=== PATIENT | male | born 1940 | race Caucasian/White ===

== ENCOUNTER 2024-09-19 15:34 | Outpatient (CLI) | payer OTHER, SELFPAY ==
--- NOTE | ~2024-09-19 | XR_ITS ---
CHEST RADIOGRAPH, PA AND LATERAL CLINICAL HISTORY: R05.9 - Cough, unspecified . COMPARISON: 11/14/2014 TECHNIQUE: PA and lateral views of the chest. FINDINGS Loop recorder projects to the left of midline. The remainder of the cardiomediastinal silhouette is otherwise unremarkable. The lungs are clear. Visualized osseous structures and soft tissues are unremarkable. IMPRESSION: No focal infiltrate or effusion. Reviewed, dictated and finalized at location A. 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
== END 2024-09-19 15:35 | disposition home or self-care (01) ==
LOC: MICIMG 15:35
PROVIDERS: PCP Family Medicine; Visit Provider Physician Assistant Medical
DX: R05.9 Cough, unspecified (principal)
CPT/HCPCS: 71046

== ENCOUNTER 2025-06-14 19:38 | Observation (INO) | payer MEDICARE, SELFPAY ==
--- NOTE | ~2025-06-14 | CT_ITS ---
EXAMINATION: CT diagnostic chest wo con DATE: 06/15/2025 14:01 INDICATION: possible hemothorax TECHNIQUE: Computed tomography (CT) of the chest was performed with 100 mL Omnipaque-350 intravenous contrast. Automated exposure control and iterative reconstruction technique were employed. The dose-l ength product was 128.03 mGy-cm. COMPARISON: X-ray chest and ribs 06/14/2025. FINDINGS: CHEST: Exam limited by beam hardening from arm down positioning. Thoracic aorta: Mild arch calcification. The ascending aorta is dilated to 4.2 cm. The descending aor ta is dilated to 3.8 cm. Lung parenchyma and airways: Bibasilar atelectasis. Patent airways. Scattered sub-6 mm pulmonary nodu les. Calcified granulomas. Thoracic inlet, axillae and chest wall: No thyroid or soft tissue mass. No axillary lymphadenopathy. Mediastinum: No mass or lymphadenopathy. Heart and pericardium: Cardiomegaly. Atrial occlusion device. Coronary artery calcifications: Heavy. Pleura: Trace left pleural fluid. Upper abdomen: Surgically absent gallbladder. Fatty pancreatic atrophy. Right renal cysts. Thoracic bones: Minimally displaced left seventh anterolateral rib fracture.. Severe osteopenia. IMPRESSION: Minimally displaced left seventh anterolateral rib fracture. Ribs not fully included in the field-of- view. Trace left pleural fluid. Multiple sub-6 mm pulmonary nodules which require no additional evaluation, unless the patient is at high risk, in which case consider a low-dose noncontrast CT of the chest in one year. Thoracic aortic ectasia. Reviewed, dictated and finalized at location K. IMPRESSION: Minimally displaced left seventh anterolateral rib fracture. Ribs not fully inc luded in the [id number]-ovot. Trace left pleural fluid. Multiple sub-6 mm pulmonary nodules which require no additional evaluation, unl ess the patient is at high risk, in which case consider a low-dose noncontrast CT of the chest in one year. Thoracic aortic ectasia.
--- NOTE | ~2025-06-14 | XR_ITS ---
CHEST RADIOGRAPH, PA AND LATERAL CLINICAL HISTORY: Fall; L rib pain . COMPARISON: 09/19/2024 TECHNIQUE: PA and lateral views of the chest. FINDINGS Closure device projecting over the left atrial appendage. Loop recorder projects to the left of midline. The remainder of the cardiomediastinal silhouette is enlarged, but otherwise unremarkable. Blunting of the left costophrenic sulcus is identified suggesting a small left-sided pleural effusion . Acute minimally displaced fracture of the lateralmost margin of the left sixth rib. No additional rib fractures are appreciated for which dedicated left rib series is suggested. The lungs are otherwise clear. IMPRESSION: Acute minimally displaced fracture of the lateralmost margin of the left sixth rib for which dedicate d left rib series is suggested. Small left-sided pleural effusion without focal infiltrate. Reviewed, dictated and finalized at location A. IMPRESSION: Acute minimally displaced fracture of the lateralmost margin of the left sixth rib for which dedicated left rib series is suggested. Small left-sided pleural effusion without focal infiltrate.
--- NOTE | ~2025-06-14 | CT_ITS ---
History: Fall PROCEDURE: CT head without contrast. COMPARISON: None TECHNIQUE: Axial imaging of the head performed from the skull base to the vertex without IV contrast. Sagittal a nd coronal reformations obtained. DLP: 681 mGy-cm FINDINGS: The ventricles are enlarged. The dilatation of the ventricles is proportional to the degree of sulcal prominence, not uncommon in the senescent brain. Decreased attenuation is identified within the periventricular white matter, likely secondary to micr ovascular ischemic disease, in a patient of this age. There is no mass, mass effect or midline shift. There is no abnormal extra-axial fluid collection or intracranial hemorrhage. Visualized paranasal sinuses are clear. The mastoid air cells are well aerated. No acute displaced fractures within the overlying cranium. Impression: No acute intracranial hemorrhage or suspicious mass effect. Reviewed, dictated and finalized at location A. Impression: No acute intracranial hemorrhage or suspicious mass effect.
--- NOTE | ~2025-06-14 | XR_ITS ---
Clinical Indication: Hemothorax AP and lateral views of the chest: Comparison: 06/14/2025 Findings: The lungs are clear, without evidence of focal consolidation or pleural effusion. Cardiome diastinal silhouette is stable, with loop recorder. Stable minimally displaced fracture at the left s eventh rib.. Impression: Clear lungs. Stable left seventh rib fracture. Reviewed, dictated and finalized at location . Impression: Clear lungs. Stable left seventh rib fracture.
--- NOTE | ~2025-06-14 | XR_ITS ---
HISTORY: 6th rib fracture COMPARISON: Plain film evaluation of the chest performed on the same day TECHNIQUE: 3 views of the left ribs were performed FINDINGS: Redemonstration of an acute minimally displaced left lateral sixth rib fracture. Left-sided pleural effusion, likely blood. No discrete left-sided pneumothorax is appreciated on plain film evaluation Remainder of examination is unchanged. IMPRESSION: Redemonstration of an acute minimally displaced lateral left sixth rib fracture with adj acent pleural effusion, likely blood. No discrete pneumothorax identified on plain film evaluation. Reviewed, dictated and finalized at location A. IMPRESSION: Redemonstration of an acute minimally displaced lateral left sixth rib fracture with adjacent pleural effusion, likely blood. No discrete pneumothorax identified on plain film evaluation.
[2025-06-14 19:37] VITALS: BP 168/100; PULSE 89; RESP 20; TEMP 36.3; O2SAT 97
[2025-06-14 19:50] VITALS: BP 168/100; PULSE 89; RESP 20; TEMP 36.3; O2SAT 98
--- OUTSIDE RECORDS SUMMARY | 2025-06-14 20:22 | XMS_ITS ---
Author Organization [facility] [address] Address [address] [place] [address] Care Team Providers Care Music Sound Light Technician Name Role Phone Paz Valles MD Unavailable [phone] Jamie Yoo MD Primary Care Provider Jack Perez MD Unavailable [phone] Active Problems Problem Noted Date Diagnosed Date Low serum vitamin B12 09/30/2022 Assessment & Plan (10/01/2022 3:45 PM RESORT MANAGER): Reportedly OK with recent labs from his PCP. 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 Vitamin D insufficiency 09/18/2019 Assessment & Plan (10/01/2022 3:44 PM RESORT MANAGER): Continue chronic supplement and review recent labs from his PCP Assessment & Plan (01/27/2022 3:41 PM CDT): Continue chronic supplement and recheck level Assessment & Plan (03/11/2021 11:21 AM CDT): Not currently on supplement, but had normal level in August 2020 Assessment & Plan (09/02/2020 1:17 PM RESORT MANAGER): On supplement, we will recheck level Assessment & Plan (09/19/2019 2:12 PM RESORT MANAGER): Continue supplement, recheck level Status post placement of implantable loop record er 04/23/2019 Overview (04/23/2019): [employer] LINQ ILR implanted on 04/23/19 [facility]ib management[facility] 07/13/2018 Assessment & Plan (07/13/2018 5:47 PM CDT): The patient has recurrent atrial flutter with rapid rates. Symptomatically, he is doing well and is unaware of his atrial arrhythmia. I prescribed the patient metoprolol an effort to reduce his ventricular rate. I do not know how long the patient has been in atrial flutter, or if the patient is paroxysmal. I recommended that he wear an event monitor for 7 days to determine if he is returning to sinus rhythm spontaneously. If he is persistently in atrial flutter, repeat ablation or cardiovert may be considered. I also recommended that the patient have an echocardiogram performed in order to ensure the structural and functional normality of his heart. I initiated the patient on Eliquis for thromboprophylaxis. S/P ablation of atrial fibrillation 07/13/2018 Anticoagulation management encounter 07/12/2017 Assessment & Plan (03/28/2022 1:47 PM CDT): His chads Vasc score is 3. The patient is presently anticoagulated with apixaban. He was intolerant of rivaroxaban in the past (he believes that it contributed to his movement disorder). The patient has progressive Parkinson's disease, and this presents difficulty to long-term anticoagulation, in that the postural instability attendant to this pathology constitutes a significant fall risk. I asked the patient to consider Watchman placement for left atrial appendage occlusion, as a nursing home means of nonpharmacologic thromboprophylaxis. He will consider this option. Assessment & Plan (07/12/2017 8:23 AM CDT): The patient has a [id number] score of 2 (annualized risk of stroke 2.2 %). The patient prefers to remain off anticoagulation. If he experiences recurrent atrial arrhythmia, we will reinitiate anticoagulation. The patient will follow-up with me in 12 months for an office visit and twelve- lead ECG. Squamous cell carcinoma in situ (SCCIS) of skin 01/11/2017 Parkinson's disease 05/18/2016 Assessment & Plan (01/27/2022 3:41 PM CDT): He is getting ongoing therapy. However, he is able to compensate and test his glucoses regularly Assessment & Plan (09/30/2020 6:53 PM RESORT MANAGER): ASSESSMENT - 80 y.o. man with Parkinson's disease for 6 years (onset in Jul 2014), that began in 2013 at age 74 with right hand rest tremor, later accompanied by micrographia. He experienced had syncope, nightmares, and hallucinations on 300 mg levodopa and metoprolol, and who chose to stay off levodopa and medicines in general due to mildness of symptoms and for fear of repeating the experience of side effects. - Motor symptoms: his slowness has subjectively progressed, and he now has intermittent leg cramps on most nights that may be caused by PD. The examination showed some progression of exam findings. The UPDRS score today was 43 in Aug 2020 on no meds; 34 in March 2019 on no meds; 34 in March 2018 on no meds; 19 in Apr 2016. He agreed to try carbidopa/levodopa again with the goal of relieving the night leg cramps and feeling less tired at the end of an active day. - Depression: hs mood has been good and he is only mildly irritable according to his . No need for treatment. - Falls: no falls. PLAN (phrased as addressed to the patient): - As we discussed, Parkinson's may be the cause of your leg cramps. Medication for PD may stop these. - Start carbidopa/levodopa 25/100 tabs: week 1, 1/2 tab in the morning; week 2, 1/2 tab morning and lunch; week 3 and after, 1/2 tab 3x/day. - Look out for the following possible side effects, and call my office if any of these side effects appear: nausea, dizziness when standing, drowsiness, vivid dreams, nightmares, confusion, hallucinations (seeing things), paranoia, fainting (which can cause falls and head injury). - Contact my office in 4 weeks to report whether you are having nightmares and I will decide whether to increase the dose further, still slowly by half a tablet a day every week. This encounter's total [id number] time was 25 minutes. I spent more than 50% of this time in counseling and/or coordination of care as documented in the note. The patient visit started at 1649 and ended at 1721. Greater than 50% of the visit was spent on counseling and coordinating care. Patient was counseled on possible benefits of carbidopa/levodopa. Assessment & Plan (04/11/2019 2:50 PM CDT): - 78 y.o. man with tremor-dominant PD for about 5 years (onset in Jul 2014), who had syncope on 300 mg levodopa and metoprolol, and who has chosen to stay off levodopa and medicines in general due to mildness of symptoms and for fear of repeated the experience of side effects. - Motor symptoms: he feels there has been little change in his symptoms in the past year, and the exam is quite similar to last year's, with motor UPDRS score again 34 today in March 2019 on no meds; 34 in March 2018 on no meds; 19 in Apr 2016. His symptoms remain not bothersome to him, and he has no balance problems. He remains strongly reluctant to start carbidopa/levodopa. We again agreed that he would not start medications now but he could call my office at any time and I would prescribe something (perhaps amantadine, selegiline, or extended-release carbidopa/levodopa). - Activity: he continues to attend [employer] 3x/week and finds it helpful as well as enjoyable. - Hypophonia: he elected not to try speech therapy for hypophonia. - Depression: hs mood has been good and he is only occasionally irritable according to his . No need for treatment. - Falls: no falls. PLAN (phrased as addressed to the patient): - Continue regular physical activity as you are doing. - If your tremor starts bothering you, or if you develop balance problems or if you fall, call my office and I will consider starting a medication for Parkinson's. Atrial fibrillation and flutter 11/27/2014 Overview (02/04/2017): A Fib / Flutter Assessment & Plan (10/01/2022 3:45 PM RESORT MANAGER): Followed by his rooms director. Need to minimize risk of hypoglycemia Assessment & Plan (07/12/2017 7:58 AM CDT): The patient is over 2 years status post ablation for atypical atrial flutter. He is also status post pulmonary vein isolation. He continues to do well and is maintaining sinus rhythm without antiarrhythmic drugs. We will continue to monitor and follow closely, and manage new / recurrent arrhythmia expectantly. Deafness, conductive 08/05/2011 Overview (02/09/2018): Description: minimal - age-related Osteoarthritis of lumbar spine 08/05/2011 Overview (02/09/2018): Description: asymptomatic Atrial fibrillation 08/05/2011 Overview (02/09/2018): Description: Hx ablation Assessment & Plan (07/01/2022 7:38 AM CDT): Minimally symptomatic persistent atrial fibrillation, overall low burden. Anticoagulation is problematic. The patient has an elevated [id number] score (3). Based on this, systemic anticoagulation is recommended for thromboprophylaxis. The patient also has a contraindication for long-term anticoagulation: Fall risk, related to postural instability (a hallmark of Parkinson's Disease). Because of this combination of factors, we discussed the steps involved and rationale for percutaneous left atrial appendage occlusion (placement of a [place] left atrial appendage occlusion device). We discussed the risks, including hematoma/vascular injury, myocardial perforation, stroke or thromboembolic event, device embolism, and . We discussed the benefits, as well as the post- Watchman medication / follow-up regimen, to include 45 days of therapeutic anticoagulation, repeat GRISELDA, followed by an additional 5 months of dual anti-platelet therapy. I provided the patient with educational material. If the patient would like to proceed, I will refer her to our Watchman coordinator for additional screening and preparations. From: October, Lizzette LS, Stas H, Debi LY, Guillermo JE, Christopher GONZALEZ Jr, Mckenzie PT, Torie AVENDANO, ME, Ozzie KL, Mateo PA, Henrik KT, Marimar JEZ, Martha CM, Cherrie CW. 2019 AHA/ACC/HRS focused update of the 2014 AHA/ACC/HRS guideline for the management of patients with atrial fibrillation: a report of the [place] [employer]/[place] [employer] Association Task Force on Clinical Practice Guidelines and the Heart Rhythm Society. Heart Rhythm 2019;16:e66-e93. Class IIb: Percutaneous GENA occlusion may be considered in patients with AF at increased risk of stroke who have contraindications to long-term anticoagulation. Assessment & Plan (03/28/2022 1:46 PM CDT): Persistent atrial fibrillation. Presently, the patient is in atrial fibrillation, but is minimally symptomatic (in contrast to previously, when he was quite symptomatic). Because of the paucity of symptoms, a strategy of rate control and anticoagulation is reasonable. Assessment & Plan (04/24/2019 6:16 PM CDT): The patient has persistent atrial fibrillation, for which he is status post ablation. He also has atypical atrial flutter which is paroxysmal, and appears to be very infrequent. In fact, he have not seen it in some time. For now, the patient will continue on metoprolol. He is very eager to discontinue apixaban if possible. I recommended that he undergo placement of an implanted loop recorder to guide further anticoagulant therapy. We will make the appropriate arrangements. The patient will follow-up with me in 6 months for an office visit and twelve- lead ECG. Assessment & Plan (10/25/2018 5:59 PM RESORT MANAGER): The patient has a post ablation atypical atrial flutter. The this appears to be paroxysmal, and he is in sinus rhythm at present. The I recommended that he continue on metoprolol, and we will continue to follow him for recurrence. I also recommended that he remain anticoagulated for thromboprophylaxis. If he experiences recurrence of flutter (especially if it is symptomatic), ablation can be considered. The patient will follow-up with me in 6 months for an office visit and twelve- lead ECG. Type 2 diabetes mellitus Assessment & Plan (10/01/2022 3:45 PM RESORT MANAGER): Glucoses currently within a good margin of safety. We can reasonably continue current management Assessment & Plan (01/27/2022 3:42 PM CDT): Glucoses within a good margin of safety. However, he needs follow-up labs Assessment & Plan (03/11/2021 11:22 AM CDT): Excellent control with diet, lifestyle and metformin therapy. Assessment & Plan (09/02/2020 1:17 PM RESORT MANAGER): Clinically stable, need to recheck labs Assessment & Plan (09/19/2019 2:12 PM RESORT MANAGER): Glucose within a reasonable margin of safety, needs follow-up labs. Current Treatment and Therapy Plans No current plan information found. Past Treatment and Therapy Plans No past plan information found. Lifetime Dose Tracking * Chemical Lifetime Dose Automatic Entry Manual Entr y Air kerma at the reference point (Ka,r) 4 mGy 0 mGy 4 mGy
--- OUTSIDE RECORDS SUMMARY | 2025-06-14 20:22 | XMS_ITS | Clinical Summary ---
Author Organization [facility] Address [address] [place] [place] [address] Care Team Providers Care Dye Range Feeder Name Role Phone Paz Valles MD Unavailable [phone] Jamie Yoo MD Primary Care Provider Jack Perez MD Unavailable [phone] Allergies Active Allergy Reactions Criticality Noted Date Comments Penicillins Rash,Hives High Reaction: RASH, Reaction: Hives, Medications finasteride (PROSCAR) 5 mg tablet Take 1 tablet (5 mg total) by mouth daily Active multivitamin tabletIndicatio ns:Vitamin Deficiency Prevention Take 1 tablet by mouth daily Active tamsulosin (FLOMAX) 0.4 mg extended release capsule Take 1 capsule (0.4 mg total) by mouth daily Active metoprolol XL (TOPROL-XL) 25 mg 24 hr tablet TAKE ONE TABLET BY MOUTH ONCE DAILY 90 tablet 3 07/03/2019 Active cholecalciferol (VITAMIN D-3) 2000 unit capsule 1 daily Active blood glucose diagnostic (Contour Next Test Strips) strip Active Microlet Lancet misc USE TO CHECK BLOOD SUGAR EVERY MORNING 09/27/2022 Active metFORMIN XR (GLUCOPHAGE XR) 500 mg 24 hr tablet TAKE 2 TABLETS BY MOUTH TWICE A DAY 360 tablet 3 06/24/2023 Active aspirin 81 mg enteric coated tablet TAKE 1 TABLET BY MOUTH EVERY DAY 90 tablet 1 03/28/2024 Active Active Problems Problem Noted Date Diagnosed Date Low serum vitamin B12 09/30/2022 Assessment & Plan (10/01/2022 3:45 PM COMMUNITY SERVICE PATROL OFFICER): Reportedly OK with recent labs from his PCP. 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 Vitamin D insufficiency 09/18/2019 Assessment & Plan (10/01/2022 3:44 PM COMMUNITY SERVICE PATROL OFFICER): Continue chronic supplement and review recent labs from his PCP Assessment & Plan (01/27/2022 3:41 PM CDT): Continue chronic supplement and recheck level Assessment & Plan (03/11/2021 11:21 AM CDT): Not currently on supplement, but had normal level in August 2020 Assessment & Plan (09/02/2020 1:17 PM COMMUNITY SERVICE PATROL OFFICER): On supplement, we will recheck level Assessment & Plan (09/19/2019 2:12 PM COMMUNITY SERVICE PATROL OFFICER): Continue supplement, recheck level Status post placement of implantable loop record er 04/23/2019 Overview (04/23/2019): Medtronic LINQ ILR implanted on 04/23/19 for Afib management. 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 He will consider this option. Assessment & Plan (07/12/2017 8:23 AM CDT): The patient has a [id number]-[id number] score of 2 (annualized risk of stroke [...] regularly Assessment & Plan (09/30/2020 6:53 PM COMMUNITY SERVICE PATROL OFFICER): ASSESSMENT - 80 y.o. man with Parkinson's [...] a day every week. This encounter's total txpj-bb-slxy time was 25 minutes. I spent more than 50% of this time in counseling and/or coordination of care as documented in the note. The patient visit started at 1649 and ended at 172. Greater than 50% of the visit was [...] carbidopa/levodopa). 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 Need to minimize risk of hypoglycemia Assessment [...] is problematic. The patient has an elevated [id number]-DLFm score (3). Based on this, systemic anticoagulation [...] LY, Guillermo JE, Christopher GONZALEZ Jr, Mckenzie MONTAGUE, Torie AVENDANO, ME, Ozzie KL, Mateo PA, Henrik KT, Marimar JEZ, Martha CM, Cherrie CW. 2019 AHA/ACC/HRS focused update of the 2014 AHA/ACC/HRS guideline for the management of patients with atrial fibrillation: a report of the [place] [employer]/[place] [employer] Task Force on Clinical Practice [...] ECG. Assessment & Plan (10/25/2018 5:59 PM COMMUNITY SERVICE PATROL OFFICER): The patient has a post ablation atypical [...] mellitus Assessment & Plan (10/01/2022 3:45 PM COMMUNITY SERVICE PATROL OFFICER): Glucoses currently within a good margin of safety. We can reasonably continue current management Assessment & Plan (01/27/2022 3:42 PM CDT): Glucoses within a good margin of safety. However, he needs follow-up labs Assessment & Plan (03/11/2021 11:22 AM CDT): Excellent control with diet, lifestyle and metformin therapy. Assessment & Plan (09/02/2020 1:17 PM COMMUNITY SERVICE PATROL OFFICER): Clinically stable, need to recheck labs Assessment & Plan (09/19/2019 2:12 PM COMMUNITY SERVICE PATROL OFFICER): Glucose within a reasonable margin of safety, needs follow-up labs. Immunizations Immunization Administration Dates Next Due Influenza, Quad, Adjuvantate d, Intramuscular 09/30/2021,07/30/2020 Influenza, Trivalent, Preser vative Free, Intramuscular 2016,2016,10/31/2014,10/31,10/31/2009 Pneumococcal Polysaccharide PPV23 10/31/2009 Surgical History Surgery Date Site/Laterality Comments CHOLECYSTECTOMY Cholecystectomy SQUAMOUS CELL CARCINOMA EXCISION right bahai ABLATION OF AFIB FLUTTER N/A a-fib ablation x 2 Medical History Medical History Date Comments Hx Other Medical PBH; Comments: [facility] 11/27/2014 - Cancer (HCC) Arrhythmia Diastolic dysfunction Atrial fibrillation (HCC) Squamous cell skin cancer Family History Medical History Relation Name Comments Heart attack Father Myocardial Infa rction; Cause of : Myocardial Infarction/Myocardial infarction; Cause of : Myocardial infarction Other Father CVA; Cause of D eath: CVA Relation Name Status Comments Father Social History Tobacco Use Types Packs/Day Years Used Date Smoking Tobacco: Never Smokeless Tobacco: Never Tobacco Cessation:Counseling Given: Not Answered Alcohol Use Standard Drinks/Week Comments No 0 (1 standard drink = 0.6 oz pur e alcohol) Sex and Gender Information Value Date Recorded Sex Assigned at Not on file Legal Sex Male 8:58 PM COMMUNITY SERVICE PATROL OFFICER Gender Identity Male 08/28/2020 9:26 AM CDT Sexual Orientation Straight 08/28/2020 9: 26 AM CDT Obstetrics History Last Filed Vital Signs Vital Sign Reading Time Taken Comments Blood Pressure 110/68 02/27/2025 1:02 PM CDT Pulse 97 02/27/2025 1:02 PM CDT Temperature 36.3 C (97.4 F) 09/30/2022 3:49 PM COMMUNITY SERVICE PATROL OFFICER Respiratory Rate 18 08/24/2022 1:04 PM CDT Oxygen Saturation 98% 02/15/2024 1:17 PM CDT Inhaled Oxygen Concentration - - Weight 54.9 kg (121 lb) 02/27/2025 1:02 PM CDT Height 162.6 cm (5' 4) 02/27/2025 1:02 PM CDT Body Mass Index 20.77 02/27/2025 1:02 PM CDT Plan of Treatment Health Maintenance Due Date Last Done Comments Depression Screening 1942 Dilated Eye Exam 1942 Foot Exam 1942 DTaP/Tdap/Td Vaccine (1 - Tdap) 1953 Hepatitis B Screening 1960 Zoster Vaccine (1 of 2) 1992 Well Visit 65+ 2007 Pneumococcal vaccine 65+ (2 of 2 - PCV) 10/31/2010 10/31/2009 Albumin Creatinine Ratio, Urine 01/29/2023 01/29/2022, 09/13/2020, 09/18/2019 Lipid Panel 01/29/2023 01/29/2022, 08/31, 09/18/2019 Hemoglobin A1C 03/31/2023 09/30/2022, 12/30, 03/09/2021, Additional history exists Fall Risk Assessment 07/06/2023 07/06/2022 eGFR 08/04/2023 08/04/2022, 12/2021, 01/29/2022, Additional history exists Covid-19 Vaccine (2023-2 5 season) 2024 08/26/2022, 08/15/2021, 01/15/2021, Additional history exists Influenza Vaccine (#1) 2025 , 09/30/2021, 07/30/2020, Additional history exists Medical Devices Implanted Type Area Gifted Teacher Device Identifier Shelf Expiration Date Model / Serial / Lot [employer] Vascade Mvp 6-12fr Venous Closure [id number] - [id number] - [id number] Implanted:Qty: 1 on 07/06/2022 by Jack Perez MD at [facility] Collagen [employer] 04/21/2024 [id number] / [id number] / [id number] [employer] Scientific Silvia Watchman Flx Procedure Device Wmflxperproc - [id number] - [id number] Implanted:Qty: 1 on 07/06/2022 by Jack Perez MD at [facility] Left Atrial Appendage Occluder [employer] Silvia 03/09/2025 [id number] / [id number] / [employer] Silvia Occluder Cardiovascular 27mm Dlv Sys Watchman Flx Strl [id number] - [id number] - [id number] Implanted:Qty: 1 on 07/06/2022 by Jack Perez MD at [facility] Left Atrial Appendage Occluder [employer] Silvia 03/09/2025 [id number] / [id number] / Medtronic Cardiac Rhythm Mgmt Linqsys Reveal Linq Mycarelink Insertable Loop Recorder Automatic - [id number] - [id number] Implanted:Qty: 1 on 04/23/2019 by Jack Perez MD at [facility] Medtronic Inc [id number] 12/28/2019 LIBORIO QSYS / [id number] / Procedures Procedure Name Priority Date/Time Associated Diagnosis Comments POCT HEMOGLOBIN A1C Routine 09/30/2022 3 :58 PM COMMUNITY SERVICE PATROL OFFICER Type 2 diabetes mellitus without complication, without long-term current use of insulin (HCC) BASIC METABOLIC PANEL Routine 08/04/2022 9:03 AM CDT Atypical atrial flutter (HCC) LIPID PANEL Routine 01/29/2022 3:57 PM CDT Type 2 diabetes mellitus without complication, without long-term current use of insulin (HCC) ALBUMIN CREATININE RATIO, URINE Routine 01/29/2022 3:57 PM CDT Type 2 diabetes mellitus without complication, without long-term current use of insulin (HCC) from Last 3 Months or Most Recently Relevant to Health Maintenance Results * (ABNORMAL) POCT hemoglobin A1c (09/30/2022 3:58 PM COMMUNITY SERVICE PATROL OFFICER) Hemoglobin A1C, POC 6.3 Blood 09/30/2022 3:58 PM COMMUNITY SERVICE PATROL OFFICER us Paz Valles MD POINT OF CARE TEST ORDERABL ES Final Result * (ABNORMAL) Basic metabolic panel (08/04/2022 9:03 AM CDT) Glucose 145(H) 65 - 99 mg/dL [facility] Comment: Fasting reference interval For someone without known diabetes, a glucose value >125 mg/dL indicates that they may have diabetes and this should be confirmed with a follow-up test. BUN 22 7 - 25 mg/dL [facility] Creatinine 0.77 0.70 - 1.22 mg/dL [facility] eGFR 91 > OR = 60 mL/min/1. 73m2 [facility] Comment: The eGFR is based on the CKD-EPI 2020 equation. To calculate the new eGFR from a previous Creatinine or Cystatin C result, go to https://www.kidney.org/professionals/ kdoqi/gfr%5Fcalculator BUN/creat ratio NOT APPLICABLE 6 - 22 (calc) [facility] Sodium 143 135 - 146 mmol/L [facility] Potassium, pl 4.2 3.5 - 5.3 mmol/L [facility] Chloride 103 98 - 110 mmol/L [facility] CO2 29 20 - 32 mmol/L [facility] Calcium 9.6 8.6 - 10.3 mg/dL [facility] Blood 08/04/2022 9:03 AM CDT 08/04/2022 9:04 AM CDT Narrative [facility] - 08/05/2022 1:57 AM CDT FASTING:YES AN UPDATE OR CORRECTION HAS BEEN MADE TO NAME FASTING: YES us Jack Perez MD LAB BLOOD ORDERABLES Fi nal Result [facility] [address] [place] [address] * (ABNORMAL) Albumin Creatinine Ratio, Urine (01/29/2022 3:57 PM CDT) Albumin Ur 53.8 mg/L [facility] Comment: Interpretive Data No reference range established. Current interpretive data was last revised 2019. Creatinine Ur 130.1 mg/dL [facility] Comment: Interpretive Data No reference range established. Current interpretive data was last revised 2019. Albumin Creatinine Ratio, Ur 41(H) 1 - 29 mg/g [facility] Urine 01/29/2022 3:57 PM CDT 01/29/2022 4:29 PM CDT Narrative [facility] - 01/29/2022 5:10 PM CDT Cc Dariel Toney MD Paz Valles MD LAB URINE ORDERABLES Final Result [facility] [address] [facility] [place] [address] * Lipid panel (01/29/2022 3:57 PM CDT) Cholesterol 160 30 - 199 mg/dL [facility] Comment: Interpretive Data Ages < or = 19 years Acceptable: <170 mg/dL Borderline high: 170-199 mg/dL High: >or= 200 mg/dL Ages > or = 20 years Desirable: <200 mg/dL Borderline high: 200-239 mg/dL High: >or= 240 mg/dL Literature References: 1. Expert Panel on Integrated Guidelines for Cardiovascular Health and Risk Reduction in Children and Adolescents. Pediatrics 2011;128:S213 2. NCEP Expert Panel. Circulation 2004;110:227 Current Interpretive Data was last revised on 2018. Triglycerides 54 <=149 mg/dL [facility] Comment: Interpretive Data Ages < or = 9 years Acceptable: <75 mg/dL Borderline high: 75-99 mg/dL High: >or= 100 mg/dL Ages 10 to 20 years Acceptable: <90 mg/dL Borderline high: 90-129 mg/dL High: >or= 130 mg/dL Ages > or = 20 years Desirable: <150 mg/dL Borderline high: 150-199 mg/dL High: 200-499 mg/dL Very high: >or= 499 mg/dL Literature References: 1. Expert Panel on Integrated Guidelines for Cardiovascular Health and Risk Reduction in Children and Adolescents. Pediatrics 2011;128:S213 2. NCEP Expert Panel. Circulation 2004;110:227 Current Interpretive Data was last revised on 2018. HDL 74 >=40 mg/dL [facility] Comment: Interpretive Data Ages < or = 19 years Acceptable: >45 mg/dL Borderline low: 40-45 mg/dL Low: <40 mg/dL Ages > or = 20 years Desirable: >or= 60 mg/dL Low: <40 mg/dL Literature References: 1. Expert Panel on Integrated Guidelines for Cardiovascular Health and Risk Reduction in Children and Adolescents. Pediatrics 2011;128:S213 2. NCEP Expert Panel. Circulation 2004;110:227 Current Interpretive Data was last revised on 2018. LDL, calculated 75 <=129 mg/dL [facility] Comment: Interpretive Data Ages < or = 19 years Acceptable: <110 mg/dL Borderline high: 110-129 mg/dL High: >or= 130 mg/dL Ages > or = 20 years Optimal: <100 mg/dL Near optimal: 100-129 mg/dL Borderline high: 130-159 mg/dL High: >160 mg/dL Literature References: 1. Expert Panel on Integrated Guidelines for Cardiovascular Health and Risk Reduction in Children and Adolescents. Pediatrics 2011;128:S213 2. NCEP Expert Panel. Circulation 2004;110:227 Current Interpretive Data was last revised on 2018. Non-HDL Cholesterol 86 mg/dL [facility] Comment: Interpretive Data Ages < or = 19 years Acceptable: <120 mg/dL Borderline high: 120-144 mg/dL High: >145 mg/dL Ages > or = 20 years When triglycerides are >200 mg/dL, Non-HDL cholesterol is a secondary target of therapy with treatment goals that are 30 mg/dL greater than the LDL cholesterol target. Literature References: 1. Expert Panel on Integrated Guidelines for Cardiovascular Health and Risk Reduction in Children and Adolescents. Pediatrics 2011;128:S213 2. NCEP Expert Panel. Circulation 2004;110:227 Current Interpretive Data was last revised on 2018. Chol/HDL ratio 2 [facility] Blood 01/29/2022 3:57 PM CDT 01/29/2022 4:29 PM CDT [facility] - 01/29/2022 5:23 PM CDT Cc Dariel Toney MD us Paz Valles MD LAB BLOOD ORDERABLES Final Result [facility] [address] [facility] [place] [address] from Last 3 Months or Most Recently Relevant to Health Maintenance Insurance [facility] [employer] MEDICARE GOLD [employer] Care Teams Dye Range Feeder Relationship Specialty Start Date End Date Jamie Yoo MD [address] [place] [address] PCP - General Family Medicine 03/25/22 Paz Valles MD Referring Physician Endocrinology Diabetes & Metabolism 09/02/20 Jack Perez MD [address] [facility] [address], [place] [address] Consulting Physician Cardiology 09/30/22
--- OUTSIDE RECORDS SUMMARY | 2025-06-14 20:22 | XMS_ITS | Clinical Summary ---
Author Organization [facility] [employer] Address [address] [place] [address] Care Team Providers Care Engraver Ornamental Design Name Role Phone Unavailable Primary Care Provider Unavailabl e Source Comments [facility] [employer],non-owned Affiliates and Associated Physician Practices is amultiple site organization consisting of ambulatory clinics and hospital sitesin [place], [place], [place] and [place]. This disclosure is being madepursuant to the Care Everywhere program and may not contain all information available regarding this patient. Last updated 18.[facility] Social History Tobacco Use Types Packs/Day Years Used Date Smoking Tobacco: Never Assessed Sex and Gender Information Value Date Recorded Sex Assigned at Not on file Legal Sex Male 4:48 PM CDT Gender Identity Not on file Sexual Orientation Not on file Plan of Treatment Health Maintenance Due Date Last Done Comments MEDICARE AWV 12 MONTHS 1942 DTAP/TDAP/TD VACCINES (1 - Tdap) 1961 PNEUMOCOCCAL VACCINE 50+ (1 of 1 - PCV) 1992 ZOSTER VACCINE (1 of 2) 1992 Respiratory Syncytial Virus (RSV) Vaccine Pt: or over 60 yrs (1 - 1-dose 75+ series) 2017 COVID-19 VACCINE ( - 2023-2 5 season) 2024 DEPRESSION SCREENING 10/31/2024 INFLUENZA VACCINE (#1) 2025 HEPATITIS B VACCINE Aged Out No longe r eligible based on patient's age to complete this topic HIB VACCINE Aged Out No longer eligi ble based on patient's age to complete this topic HPV VACCINE Aged Out No longer eligi ble based on patient's age to complete this topic MENINGOCOCCAL (Group B) VACC INE SHARED DECISION-MAKING Aged Out No longer eligibl e based on patient's age to complete this topic MENINGOCOCCAL GROUPS A/C/Y/W VACCINE Aged Out No longer eligible b ased on patient's age to complete this topic Insurance [facility] MEDICARE
--- OUTSIDE RECORDS SUMMARY | 2025-06-14 20:22 | XMS_ITS | Encounter Summary ---
Author Organization [facility] Address [address] [place] [address] Care Team Providers Care Partition Assembler Name Role Phone Unavailable Primary Care Provider Unavailabl e Encounter Details Date Type Department Care Team (Late st Contact Info) Description 06/09/2023 Lab Requisition [facility] - DermPath Lab [address] [place] [id number] Korey Najera MD [facility] DERMATOLOGY [address] [place] [phone] Neoplasm of uncertain behavior of skin Social History Tobacco Use Types Packs/Day Years Used Date Smoking Tobacco: Never Assessed Sex and Gender Information Value Date Recorded Sex Assigned at Not on file Legal Sex Male 4:48 PM CDT Gender Identity Not on file Sexual Orientation Not on file documented as of this encounter Plan of Treatment Not on file documented as of this encounter Procedures Procedure Name Priority Date/Time Associated Diagnosis Comments DERMATOPATHOLOGY Routine 06/09/2023 12:0 0 AM CDT Neoplasm of uncertain behavior of skin documented in this encounter Results * DERMATOPATHOLOGY (06/09/2023 12:00 AM CDT) Case Report Dermatopathology Report Case: [id number] Authorizing Provider: Korey Najera MD Collected: 06/09/2023 12:00 AM Ordering Location: [facility] DermPath Lab Received: 06/10/2023 02:58 PM Pathologist: Lexie Clark MD Specimen: Skin, left jawline 12:15 PM CDT DERMATOPATHOLOGY LABORATORY Final Diagnosis Specimen A. 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 The specimen consists of a shave biopsy measuring 8x7x2 mm. Jar 0. 12:15 PM CDT DERMATOPATHOLOGY LABORATORY Microscopic Description Specimen A. SKIN, left jawline: The epidermis shows parakeratosis, full thickness disorderly maturation of keratinocytes, mitoses at different levels, and dyskeratotic cells. The lesion extends to the base of the biopsy. COMMENT: An invasive squamous cell carcinoma cannot be ruled out. 12:15 PM CDT DERMATOPATHOLOGY LABORATORY Disclaimer An external and internal positive and negative controls are appropriate for the histochemical, immunohistochemical and immunofluorescence stain(s) in this case (if any), except where stated explicitly. The performance characteristics of the stain(s) cited in this report were developed and its performance characteristic determined by the Dermatopathology Laboratory at [facility], directed by Dr. Christopher Holman. These tests need not be, and therefore are not, approved by the [place] Food and Drug Administration. The tests are used for clinical purposes. Billing Codes Specimen Charges Stain Charges 19094 1 3 12:15 PM CDT DERMATOPATHOLOGY LABORATORY Embedded Images 3 12:15 PM CDT DERMATOPATHOLOGY LABORATORY Pathology/Cytolog y TISSUE SPECIMEN FROM SKIN / Unknown 06/09/2023 06/10/2023 2:58 PM CDT us Korey Najera MD LAB - PATHOLOGY/CYTOLOGY JOSE LOVE Final Result DERMATOPATHOLOGY LABORATORY [facility] - Department of Dermatology [address] [place] [address], [facility] [phone] documented in this encounter Visit Diagnoses Diagnosis Neoplasm of uncertain behavior of skin documented in this encounter
--- OUTSIDE RECORDS SUMMARY | 2025-06-14 20:22 | XMS_ITS | Clinical Summary ---
Author Organization [facility] Address [facility] [place] [address] Care Team Providers Care Urban Redevelopment Specialist Name Role Phone Unavailable Primary Care Provider Unavailabl e Social History Tobacco Use Types Packs/Day Years Used Date Smoking Tobacco: Never Assessed Sex and Gender Information Value Date Recorded Sex Assigned at Not on file Legal Sex Male 4:31 PM CDT Gender Identity Not on file Sexual Orientation Not on file Plan of Treatment Health Maintenance Due Date Last Done Comments DTaP, Tdap and Td Vaccines ( 1 - Tdap) 1961 Pneumococcal Vaccine: 50+ Ye ars (1 of 1 - PCV) 1992 Zoster Vaccines (1 of 2) 1992 RSV Immunization or 60+ Years (1 - 1-dose 75+ series) 2017 COVID-19 Vaccine (2023-2 5 season) 2024 Meningococcal B Vaccine Aged Out No l onger eligible based on patient's age to complete this topic Meningococcal Vaccine Aged Out No gerald kalyn eligible based on patient's age to complete this topic RSV Immunizations Under 20 Months Aged Out No longer eligible based on patient's age to complete this topic
[2025-06-14 21:00] VITALS: BP 148/89; PULSE 94; RESP 20; O2SAT 97
--- NOTE | 2025-06-14 21:19 | ED_ITS ---
HPI - Fall General Chief Complaint: Fall Stated Complaint: Fall/rib pain L Time Seen by Provider: 06/14/25 19:46 History of Present Illness HPI Narrative: 84-year-old male presenting to the emergency department with left-sided rib pain after falling in the shower. Did not strike his head or lose consciousness. Patient states he takes blood thinners. Has a Watchman device for atrial fibrillation. Also has a history of severe parkinsonian disease with tremors at baseline. Endorses some pain in his left rib cage but no difficulty in breathing, chest discomfort, nausea, vomiting, headache, vision change, peripheral neuropathy or weakness. He was otherwise in his normal state of health. He states he got tangled up in the shower and fell towards the left side and struck his ribs against the toilet bowl. Able to get up right away and did not lose consciousness. Related Data Home Medications ?Medication ?Instructions ?Recorded ?Confirmed ?Last Taken ?Type aspirin 325 mg tablet 325 mg PO DAILY 02/10/22 01/07/25 Unknown History Allergies Allergy/AdvReac Type Severity Reaction Status Date / Time Penicillins Allergy Unknown Skin Verified 06/14/25 19:51 Reaction Review of Systems 2 Review of Systems: As reviewed above in HPI [facility] Past Medical History Medical History (Updated 06/15/25 @ 00:41 by Edy Rivera MD) Traumatic hemothorax, initial encounter Closed rib fracture Fall Cobalamin deficiency Surgical History Surgical History History of cardiac radiofrequency ablation History of loop recorder History of cholecystectomy Family History Family History Sibling Family history of multiple sclerosis Family history of diabetes mellitus in first degree relative Patient's sister is Father Cerebrovascular accident Patient's father is Diabetes mellitus Hypertension Heart disease Mother Family history of Alzheimer's disease Patient's mother is Social History Social History Social History: Smoking status: Never smoker Second hand tobacco smoke exposure: No Alcohol intake: never Substance use: never Substance use type: does not use Do You Feel Safe in your Home?: Yes Lack of Transportation: No Lack of Food: Never True Current Housing: I Have Housing Concerned About Future Housing: No Difficulty Paying Gas/Electric Bills: No Difficulty Paying for Meds: No Currently Unemployed: YES Education: Don't Know Difficulty w/ Childcare or Family Care: No Living arrangements: with family Occupation/Education: retired Gender identity (if verbalized by the patient): Male Sexual Orientation (if Verbalized by the Patient): Straight or Heterosexual Exam 2 Narrative: GENERAL: [Well-appearing, well-nourished, and in no acute distress.] HEAD: [Normocephalic, atraumatic.] EYES: [PERRLA and EOMI.] ENT: Nares clear, no rhinorrhea or epistaxis. Mucous membranes moist. NECK: Supple. CHEST: Tenderness to palpation over left side ribcage, no step-offs, deformities or crepitus. Clear breath sounds throughout, no tachypnea. HEART: [Regular rate and rhythm]. No murmur heard. [Normal peripheral pulses.] ABDOMEN: [Soft, nondistended], [nontender], [No rigidity or guarding] EXTREMITIES: Normal range of motion. [No edema.] SKIN: Warm, dry, no rash. NEURO: [No focal deficits]. Alert and oriented [x3.] PSYCH: [Normal mood and affect.] Course Vital Signs Vital signs: Vital Signs Temperature 36.3 C L 06/14/25 19:37 Pulse Rate 89 06/14/25 19:37 Respiratory Rate 20 06/14/25 19:37 Blood Pressure 168/100 H 06/14/25 19:37 Pulse Oximetry 97 06/14/25 19:37 Oxygen Delivery Room Air 06/14/25 19:37 Temperature 36.3 C L 06/14/25 19:50 Pulse Rate 71 06/15/25 00:05 Respiratory Rate 16 06/15/25 00:05 Blood Pressure 145/90 H 06/15/25 00:05 Pulse Oximetry 97 06/15/25 00:05 Oxygen Delivery Room Air 06/14/25 19:37 MDM - Fall MDM Narrative Medical decision making narrative: 84-year-old male presenting to the emergency department with left-sided rib pain after falling in the shower. Did not strike his head or lose consciousness. Patient states he takes blood thinners. Has a Watchman device for atrial fibrillation. Also has a history of severe parkinsonian disease with tremors at baseline. Endorses some pain in his left rib cage but no difficulty in breathing, chest discomfort, nausea, vomiting, headache, vision change, peripheral neuropathy or weakness. He was otherwise in his normal state of health. He states he got tangled up in the shower and fell towards the left side and struck his ribs against the toilet bowl. Able to get up right away and did not lose consciousness. Tenderness to palpation over left side ribcage, no step-offs, deformities or crepitus. Clear breath sounds throughout, no tachypnea. Patient is not any acute distress and overall well-appearing. He does have some baseline tremor from his parkinsonian disease. Concern for rib fracture, hemothorax, pneumothorax. Low suspicion intracranial pathology but given his age risk factors with the fall a CT of the head was obtained. X-ray shows a left-sided displaced rib fracture with small left-sided pleural effusion. Repeat rib series obtained to evaluate for additional ribs or worsening/stability of the fluid collection which could be a potential small hemothorax based on injury pattern. Patient is saturating 98% on room air without any tachypnea. No pneumothorax appreciated. Repeat x-rays with left-sided rib series show redemonstration of the minimally displaced fracture isolated to rib 6. With an underlying likely hemothorax although very small. No indication for chest tube/drainage. No pneumothorax. He is saturating well on room air without any hypoxemia or needing oxygen. No tachypnea or tachycardia. Pain is controlled without any significant inventions. Given patient's small hemothorax he will require admission to a hospital for monitoring and repeat images to make sure that this does not expand given his historical features and use of aspirin. He is not any other anticoagulants per his . He has a Watchman device for his AFib. I did discuss this with our hospitalist KENAN Andino and relayed the concerns as well as the need for an observation admission to make sure he has no expansion of his hemothorax or developing any respiratory distress her vital instability. No indication to transfer him to a trauma center given the lack of pain, vital concerns or worsening symptoms/findings on repeat imaging but he requires admission for observation with likely dc in AM if stable. Patient was accepted to the IMU at this time. Family and patient comfortable with the plan and patient is DNR at this time. Medical Records Attestation: I reviewed the patient's medical records. Lab Data Attestation: I reviewed the patient's lab results. 06/14/25 22:43 06/14/25 22:43 Labs: Lab Results 06/14/25 Range/Units 22:43 WBC 6.7 (4.5-10.0) K/mm3 RBC 3.68 L (4.6-6.20) M/mm3 Hgb 11.4 L (14.0-18.0) g/dL Hct 34.3 L (42.0-52.0) % MCV 93.2 (80-100) fl MCH 31.0 (26-34) pg MCHC 33.2 (32-36) g/dl RDW 13.9 (11.5-14.5) % Plt Count 222 (150-375) k/mm3 MPV 9.1 (7.4-10.4) fl Immature Gran % (Auto) 0.5 (0-0.5) % Neut % (Auto) 64.4 (45.5-73.1) % Lymph % (Auto) 25.3 (18.3-44.2) % [place] % (Auto) 7.7 (2.6-8.5) % Eos % (Auto) 1.5 (0-4.4) % Baso % (Auto) 0.6 (0.2-1.2) % Lymph # (Auto) 1.68 (0.9-3.2) K/mm3 [place] # (Auto) 0.5 (0.1-0.6) K/mm3 Eos # (Auto) 0.1 (0-0.3) K/mm3 Baso # (Auto) 0.0 (0.0-0.1) K/mm3 Abs Immat Gran (auto) 0.03 (0.00-0.031) K/mm3 Absolute Neuts (auto) 4.3 (1.3-6.7) K/mm3 Absolute Nucleated RBC 0.000 (0.0-0.012) K/mm3 Nucleated RBC % 0.0 (0.0-0.2) % PT 12.8 (11.1-14.7) Seconds INR 0.9 APTT 28.0 (22.3-36.8) Seconds Sodium 139 (137-145) mmol/L Potassium 4.2 (3.4-5.0) mmol/L Chloride 104 (98-107) mmol/L Carbon Dioxide 27 (22-30) mmol/L Anion Gap 8 (4-12) mmol/L BUN 21 H (9-20) mg/dL Creatinine 0.79 (0.7-1.3) mg/dL Estim Creat Clear Calc 48 ml/min Estimated GFR > 60 (59 - ) Glucose 232 H (65-110) mg/dL Calcium 9.6 (8.4-10.2) mg/dL Blood Type O Positive Antibody Screen Negative Imaging Data Attestation: I personally reviewed and interpreted this imaging study as follows: My impression: Impressions Chest X-Ray 06/14/25 21:13 IMPRESSION: Acute minimally displaced fracture of the lateralmost margin of the left sixth rib for which dedicated left rib series is suggested. Small left-sided pleural effusion without focal infiltrate. Ribs X-Ray 06/14/25 21:55 IMPRESSION: Redemonstration of an acute minimally displaced lateral left sixth rib fracture with adjacent pleural effusion, likely blood. No discrete pneumothorax identified on plain film evaluation. Head CT 06/14/25 21:58 Impression: No acute intracranial hemorrhage or suspicious mass effect. Discharge Plan Discharge Clinical Impression: Fracture of left sixth rib, Hemothorax, left, Parkinson disease Patient Disposition: Still a Patient Condition: Stable
[2025-06-14] MEDS: oxyCODONE HCL (*CRX) 2.5 MG TAB IR PO (21:29)
[2025-06-14] MEDS: LIDOCAINE 5% PATCH 1 PATCH TRANSDERM (21:29)
[2025-06-14 22:50] LABS: Hematocrit 34.3 % (42.0-52.0); Hemoglobin 11.4 g/dL (14.0-18.0); Immature Granulocyte Percent A 0.5 % (0-0.5); Lymphocytes Absolute Auto 1.68 K/mm3 (0.9-3.2); Mean Corpuscular HGB Conc 33.2 g/dl (32-36); Mean Corpuscular Hemoglobin 31.0 pg (26-34); Mean Corpuscular Volume 93.2 fl (80-100); Nucleated Red Blood Cells Absolute Auto 0.000 K/mm3 (0.0-0.012); Nucleated Red Blood Cells Perc 0.0 % (0.0-0.2); Platelet Count Result 222 k/mm3 (150-375); Red Blood Count 3.68 M/mm3 (4.6-6.20); White Blood Count 6.7 K/mm3 (4.5-10.0)
[2025-06-14 23:00] LABS: INR 0.9; Prothrombin Time 12.8 Seconds (11.1-14.7)
[2025-06-14 23:01] LABS: Anion Gap 8 mmol/L (4-12); Blood Urea Nitrogen 21 mg/dL (9-20); Calcium 9.6 mg/dL (8.4-10.2); Carbon Dioxide 27 mmol/L (22-30); Chloride 104 mmol/L (98-107); Estimated CRCL calculation 48 ml/min; Estimated Glomerular Filt Rate > 60; Glucose 232 mg/dL (65-110); Partial Thromboplastin Time 28.0 Seconds (22.3-36.8); Potassium 4.2 mmol/L (3.4-5.0); Sodium 139 mmol/L (137-145)
[2025-06-15] VITALS (16 sets, daily range): BP systolic 145–161; BP diastolic 65–95; PULSE 65–134; RESP 16–20; TEMP 36.1–36.9; O2SAT 96–100; BMI 20.8
--- NOTE | 2025-06-15 | P.HP_ITS ---
H&P: HPI History of Present Illness Date/Time: 06/15/25 00:00 Chief Complaint: Fall, Rib pain Narrative: This is a very pleasant 84 year old male pt with PMH of Parkinson's disease, atrial fibrillation status post Watchman procedure and cobalamin deficiency who presented to the emergency room this evening after a fall in the shower. Patient states that he was attempting to Wipe down the shower when he became entangled in the towel and fell outside of the shower landing with his left ribs against the toilet. He denies any head injury or LOC and his only blood thinner is a full aspirin daily. He has no other complaints other than the left rib pain. Workup was performed in ER that shows unremarkable metabolic panel, normal vital signs, specifically oxygen saturations of 98% on room air, hemoglobin and hematocrit of 11.4 and 34.3. Platelets 222 and no leukocytosis. Coags are normal. Chest x-ray shows an acute minimally displaced fracture of the lateral most margin of the left 6th rib. There is a reported adjacent pleural effusion that is likely blood. No pneumothorax. CT head is negative. Patient is being admitted observation to ensure early intervention if there is any sign of decompensation with his respiratory status. He will have serial enzymes and repeat chest x-ray in a.m.. Review of Systems Review of Systems: All systems reviewed & are unremarkable except as noted in HPI and below PMFSH Past Medical History Medical History (Updated 06/15/25 @ 00:18 by GENEVA Lopez) Traumatic hemothorax, initial encounter Closed rib fracture Fall Cobalamin deficiency Surgical History Surgical History History of cardiac radiofrequency ablation History of loop recorder History of cholecystectomy Family History Family History Sibling Family history of multiple sclerosis Family history of diabetes mellitus in first degree relative Patient's sister is Father Cerebrovascular accident Patient's father is Diabetes mellitus Hypertension Heart disease Mother Family history of Alzheimer's disease Patient's mother is Social History Social History Social History: Smoking status: Never smoker Second hand tobacco smoke exposure: No Alcohol intake: never Substance use: never Substance use type: does not use Do You Feel Safe in your Home?: Yes Lack of Transportation: No Lack of Food: Never True Current Housing: I Have Housing Concerned About Future Housing: No Difficulty Paying Gas/Electric Bills: No Difficulty Paying for Meds: No Currently Unemployed: YES Education: Don't Know Difficulty w/ Childcare or Family Care: No Living arrangements: with family Occupation/Education: retired Gender identity (if verbalized by the patient): Male Sexual Orientation (if Verbalized by the Patient): Straight or Heterosexual Meds Home Medications and Allergies Home Medications ?Medication ?Instructions ?Recorded ?Confirmed ?Type aspirin 325 mg tablet 325 mg PO DAILY 02/10/22 01/07/25 History lancets #200 ea 04/23/24 01/07/25 Rx metoprolol succinate 25 mg See Rx Instructions .Route 11/30/24 01/07/25 Rx tablet,extended release 24 hr .COMPLEX #90 tabs tamsulosin 0.4 mg capsule 0.4 mg PO DAILY #90 caps 01/14/25 Rx finasteride 5 mg tablet See Rx Instructions .Route 04/11/25 Rx .COMPLEX #90 tabs metformin 500 mg tablet,extended 1,000 mg (2 x 500 mg) PO BID #360 04/11/25 Rx release 24 hr tabs blood sugar diagnostic (Accu-Chek #100 ea 04/15/25 Rx Guide test strips) blood-glucose meter (Accu-Chek #1 ea 04/15/25 Rx Guide Glucose Meter) Allergies Allergy/AdvReac Type Severity Reaction Status Date / Time Penicillins Allergy Unknown Skin Verified 06/14/25 19:51 Reaction Vital Signs Vital Signs - 24 hr 06/14/25 19:37 06/14/25 19:50 Temperature 97.4 F L 97.4 F L Pulse Rate 89 89 Respiratory Rate 20 20 Blood Pressure 168/100 H 168/100 H Pulse Oximetry 97 98 Oxygen Delivery Room Air Exam Const: General: comfortable and no acute distress Other: Pleasant, elderly male patient lying supine at this time in no acute distress. HENMT: Face/Nose/Sinus: Normal nares present Mouth: Yes moist mucous membranes Eyes: General: appearance normal, both eyes and all related structures EOM: EOMs intact bilaterally Neck: Neck: supple and no JVD Thyroid: thyroid normal Carotids: no bruits Lymphatic: lymphadenopathy not noted Chest: Other: Left lateral thorax tender to palpation Resp: Effort & Inspection: abnormal respiratory effort (Diminished due to pain) Auscultation: diminished lung sounds bilateral (Basis) Cardio: Rate: regular rate Rhythm: abnormal rhythm Heart sounds: no gallops, no murmurs and no rubs GI: Inspection: non-distended GI Palp: Yes Soft to palpation and No Tenderness to palpation present (GI) Auscultation: normal bowel sounds Skin: General skin exam: normal color, no rashes or lesions noted and no erythema Lesions: no lesions noted Rashes: no rashes noted Wounds: no wounds Neuro: Speech: normal speech Other: Parkinsonian Tremor noted Extrem: General: normal to inspection, no edema and no pedal edema Psych: Mental Status: mental status grossly normal Affect: normal affect H&P: Results Labs Labs: Short CBC 06/14/25 Range/Units 22:43 WBC 6.7 (4.5-10.0) K/mm3 Hgb 11.4 L (14.0-18.0) g/dL Hct 34.3 L (42.0-52.0) % Plt Count 222 (150-375) k/mm3 BMP 06/14/25 22:43 Sodium 139 Potassium 4.2 Chloride 104 Carbon Dioxide 27 BUN 21 H Creatinine 0.79 Glucose 232 H Calcium 9.6 Assessment and Plan Assessment and plan (1) Fall: Code(s): W19.XXXA - Unspecified fall, initial encounter Status: Acute Assessment and Plan: * As noted, pt fell while attempting to wipe down shower. * Fall precautions. (2) Closed rib fracture: Code(s): S22.39XA - Fracture of one rib, unspecified side, initial encounter for closed fracture Status: Acute Assessment and Plan: * As reviewed independently by this provider. There is a minimally displaced fracture of the lateral most aspect of the left 6th rib. No pneumothorax but there is a small adjacent pleural effusion that is likely blood. * Pt not requiring any supplemental oxygen. * Incentive spirometer ordered. * Pain control with PRN Morphine 2 mg IVP Q2 hrs prn for severe pain * [place] 5/325 mg PRN Q4 hrs for moderate pain and Tylenol 650 mg Q4 hrs po prn for mild pain. * ICE to ribs * Splint ribs with pillow for sneezing/coughing/changing positions. (3) Traumatic hemothorax, initial encounter: Code(s): S27.1XXA - Traumatic hemothorax, initial encounter Status: Acute Assessment and Plan: * See #2. * Repeat CXR in AM to determine if stable. (4) Atrial fibrillation: Code(s): I48.91 - Unspecified atrial fibrillation Status: Chronic Assessment and Plan: * Rate controlled with metoprolol * Telemetry (5) DM w/o complication type II: Code(s): E11.9 - Type 2 diabetes mellitus without complications Status: Chronic Assessment and Plan: * Glucose checks AC and HS * Hypoglycemic protocol * diabetic diet * check A1C * SSI (6) Parkinsons disease: Code(s): G20 - Parkinson's disease Status: Chronic Assessment and Plan: * Fall precautions. * Re-order home meds as appropriate once they are verified and confirmed. Quality VTE Prophylaxis VTE prophylaxis: mechanical ordered Hospitalist MIPS Advance Care Plan I have confirmed that the patient's Advanced Care Plan is present, code status is documented, or surrogate decision maker is listed in patient medical record.: Yes Medication Reconciliation I have utilized all available resources to obtain, update and review the patients current medications (includes all prescriptions, OTC, herbals, cannabis, and nutritional supplements).: Yes
--- NOTE | 2025-06-15 01:05 | ADMGEN ---
This patient, Johnny hTapa, was admitted to IMU Room 205-01 on 06/15/25 at 0020. Patient/family oriented to hospital policies and general routines including ID bracelet, bed and alarms, visiting hours, pain management, procedures, bathroom and other care routines, personal items, smoking policy, room service/diet, and visiting hours. Information on how to activate the Rapid Response Team has been discussed. Patient/Family are encouraged to report perceived risks to care and to ask questions if they do not understand what they are told or what they should do.
[2025-06-15 02:15] LABS: Hemoglobin A1C 7.6 % (<5.7)
--- NOTE | 2025-06-15 07:55 | PM.IMPN ---
Progress Note: A&P Assessment and Plan (1) Fall: Code(s): W19.XXXA - Unspecified fall, initial encounter Status: Acute Assessment and Plan: As noted, pt fell while attempting to wipe down shower. Fall precautions. (2) Closed rib fracture: Code(s): S22.39XA - Fracture of one rib, unspecified side, initial encounter for closed fracture Status: Acute Assessment and Plan: As reviewed independently by this provider. There is a minimally displaced fracture of the lateral most aspect of the left 6th rib. No pneumothorax but there is a small adjacent pleural effusion that is likely blood. CT scan shows minimally displaced left 7th anterior lateral rib fracture. No evidence of Pt not requiring any supplemental oxygen. Incentive spirometer ordered. Pain control with PRN Morphine 2 mg IVP Q2 hrs prn for severe pain [place] 5/325 mg PRN Q4 hrs for moderate pain and Tylenol 650 mg Q4 hrs po prn for mild pain. ICE to ribs Splint ribs with pillow for sneezing/coughing/changing positions. (3) Traumatic hemothorax, initial encounter: Code(s): S27.1XXA - Traumatic hemothorax, initial encounter Status: Acute Assessment and Plan: See #2. Repeat CXR in AM to determine if stable. (4) Atrial fibrillation: Code(s): I48.91 - Unspecified atrial fibrillation Status: Chronic Assessment and Plan: Rate controlled with metoprolol Not on AC PMHx ablation x 2 and watchman device Telemetry (5) DM w/o complication type II: Code(s): E11.9 - Type 2 diabetes mellitus without complications Status: Chronic Assessment and Plan: Glucose checks AC and HS Hypoglycemic protocol diabetic diet check A1C SSI (6) Parkinsons disease: Code(s): G20 - Parkinson's disease Status: Chronic Assessment and Plan: Fall precautions. Re-order home meds as appropriate once they are verified and confirmed. Subjective Date/time seen: 06/15/25 07:55 Interval history: Patient has a history of AFib, Parkinson's. As per , patient tripped due to shower curtain and fell on left side but no head trauma. CT scan shows minimally displaced left 7th anterior lateral rib fracture. No evidence of hemothorax. Review of Systems Review of Systems: All systems reviewed & are unremarkable except as noted in HPI and below Exam Const: General: comfortable and no acute distress Other: Pleasant, elderly male patient lying supine at this time in no acute distress. HENMT: Face/Nose/Sinus: Normal nares present Mouth: Yes moist mucous membranes Eyes: General: appearance normal, both eyes and all related structures EOM: EOMs intact bilaterally Neck: Neck: supple and no JVD Thyroid: thyroid normal Carotids: no bruits Lymphatic: lymphadenopathy not noted Chest: Other: Left lateral thorax tender to palpation Resp: Effort & Inspection: abnormal respiratory effort (Diminished due to pain) Auscultation: diminished lung sounds bilateral (Basis) Cardio: Rate: regular rate Rhythm: abnormal rhythm Heart sounds: no gallops, no murmurs and no rubs GI: Inspection: non-distended Auscultation: normal bowel sounds Skin: General skin exam: normal color, no rashes or lesions noted, no erythema, No lesion and No rashes Lesions: no lesions noted Rashes: no rashes noted Wounds: no wounds Neuro: Speech: normal speech Other: Parkinsonian Tremor noted Extrem: General: normal to inspection, no edema and no pedal edema Psych: Mental Status: mental status grossly normal Affect: normal affect Objective Data Vital Signs Vital Signs: Vital Signs - 24 hr 06/14/25 19:37 06/14/25 19:50 06/14/25 21:00 Temperature 97.4 F L 97.4 F L Pulse Rate 89 89 94 Respiratory Rate 20 20 20 Blood Pressure 168/100 H 168/100 H 148/89 H Pulse Oximetry 97 98 97 Oxygen Delivery Room Air 06/15/25 00:05 06/15/25 00:23 06/15/25 00:31 Temperature 97.6 F Pulse Rate 71 123 H 79 Respiratory Rate 16 18 Blood Pressure 145/90 H 152/82 H Pulse Oximetry 97 97 Oxygen Delivery 06/15/25 00:40 06/15/25 02:00 06/15/25 04:00 Temperature 98.4 F Pulse Rate 123 H 76 104 H Respiratory Rate 18 16 Blood Pressure 161/76 H Pulse Oximetry 97 96 Oxygen Delivery Room Air 06/15/25 04:00 06/15/25 04:22 06/15/25 06:00 Temperature Pulse Rate 65 104 H 91 Respiratory Rate 16 Blood Pressure Pulse Oximetry 96 Oxygen Delivery Room Air Intake/Output Intake/Output: Intake & Output 08/06/13/25 06/14/25 06/15/25 23:59 23:59 23:59 23:59 Intake Total 100 Output Total 340 Balance -240 Meds/Results Medications: Active Medications Generic Name Dose Route Start Last Admin Trade Name Freq PRN Reason Stop Dose Admin Acetaminophen 650 mg 06/14/25 23:06 Acetaminophen 325 Mg Tablet PO Q4H PRN Mild Pain (1-3) or Fever Hydrocodone Bitart/Acetaminophen 1 tab 06/14/25 23:06 Hydrocodone/Acetaminophen (*Crx) 5-325 Mg Tablet PO Q4H PRN Pain Rated 4-6 Dextrose 12.5 gm 06/15/25 00:22 Dextrose 50% 25 Gm/50 Ml Syringe IV PUSH PRN PRN Hypoglycemia Protocol Finasteride 5 mg 06/15/25 09:00 Finasteride 5 Mg Tablet BY MOUTH DAILY [facility] Glucagon 1 mg 06/15/25 00:22 Glucagon For Inj 1 Mg Vial IM PRN PRN Hypoglycemia Protocol Glucose 15 gm 06/15/25 00:22 Glucose Oral Gel 15 Gm Of Glucse In 37.5 Gm Tube PO PRN PRN Hypoglycemia Protocol Dextrose 1,000 mls @ 100 mls/hr 06/15/25 00:22 Dextrose 5% 1,000 Ml IVPB PRN PRN Hypoglycemia Protocol Insulin Aspart 2 - 5 units 06/15/25 08:00 Insulin Aspart (*Bkc) 100 Units/Ml SUB-Q TIDWM [facility] Protocol Insulin Aspart 1 - 2 units 06/15/25 21:00 Insulin Aspart (*Bkc) 100 Units/Ml SUB-Q HS [facility] Protocol Metoprolol Succinate 25 mg 06/15/25 09:00 Metoprolol Succinate Ext Rel 25 Mg Tabcr BY MOUTH DAILY [facility] Morphine Sulfate 2 mg 06/14/25 23:06 Morphine Sulfate (*Crx) 2 Mg/Ml Inj IV PUSH Q2H PRN Pain Rated 7-10 Ondansetron HCl 4 mg 06/14/25 23:06 Ondansetron Inj 4 Mg/2 Ml Vial IV PUSH Q4H PRN Nausea Tamsulosin HCl 0.4 mg 06/15/25 09:00 Tamsulosin Hcl 0.4 Mg Capsule PO DAILY [facility] Radiology Results: ITS Impressions Chest X-Ray 06/14/25 21:13 IMPRESSION: Acute minimally displaced fracture of the lateralmost margin of the left sixth rib for which dedicated left rib series is suggested. Small left-sided pleural effusion without focal infiltrate. Ribs X-Ray 06/14/25 21:55 IMPRESSION: Redemonstration of an acute minimally displaced lateral left sixth rib fracture with adjacent pleural effusion, likely blood. No discrete pneumothorax identified on plain film evaluation. Head CT 06/14/25 21:58 Impression: No acute intracranial hemorrhage or suspicious mass effect. Labs Labs: Laboratory Results - last 24 hr 06/14/25 06/14/25 06/15/25 22:42 22:43 07:34 WBC 6.7 RBC 3.68 L Hgb 11.4 L Hct 34.3 L MCV 93.2 MCH 31.0 MCHC 33.2 RDW 13.9 Plt Count 222 MPV 9.1 Immature Gran % (Auto) 0.5 Neut % (Auto) 64.4 Lymph % (Auto) 25.3 [place] % (Auto) 7.7 Eos % (Auto) 1.5 Baso % (Auto) 0.6 Lymph # (Auto) 1.68 [place] # (Auto) 0.5 Eos # (Auto) 0.1 Baso # (Auto) 0.0 Abs Immat Gran (auto) 0.03 Absolute Neuts (auto) 4.3 Absolute Nucleated RBC 0.000 Nucleated RBC % 0.0 PT 12.8 INR 0.9 APTT 28.0 Sodium 139 Potassium 4.2 Chloride 104 Carbon Dioxide 27 Anion Gap 8 BUN 21 H Creatinine 0.79 Estim Creat Clear Calc 48 Estimated GFR > 60 Glucose 232 H POC Capillary Glucose 189 H Hemoglobin A1c 7.6 H Calcium 9.6 Blood Type O Positive Antibody Screen Negative Quality VTE Prophylaxis VTE prophylaxis: mechanical ordered Hospitalist [facility] Advance Care Plan I have confirmed that the patient's Advanced Care Plan is present, code status is documented, or surrogate decision maker is listed in patient medical record.: Yes Medication Reconciliation I have utilized all available resources to obtain, update and review the patients current medications (includes all prescriptions, OTC, herbals, cannabis, and nutritional supplements).: Yes
[2025-06-15] MEDS: TAMSULOSIN HCL 0.4 MG CAPSULE PO (08:21)
[2025-06-15] MEDS: METOPROLOL SUCCINATE EXT REL 25 MG TABCR BY MOUTH (08:21)
[2025-06-15] MEDS: HYDROcodone/acetaminophen (*CRX) 5-325 MG TABLET 1 TAB PO ×2 (08:22→13:20)
[2025-06-15] MEDS: FINASTERIDE 5 MG TABLET BY MOUTH (08:22)
[2025-06-15] MEDS: ONDANSETRON INJ 4 MG/2 ML VIAL IV PUSH ×2 (12:14→20:16)
[2025-06-15 13:31] LABS: Hematocrit 39.0 % (42.0-52.0); Hemoglobin 13.1 g/dL (14.0-18.0); Mean Corpuscular HGB Conc 33.6 g/dl (32-36); Mean Corpuscular Hemoglobin 30.7 pg (26-34); Mean Corpuscular Volume 91.3 fl (80-100); Platelet Count Result 255 k/mm3 (150-375); Red Blood Count 4.27 M/mm3 (4.6-6.20); White Blood Count 9.5 K/mm3 (4.5-10.0)
[2025-06-15 13:54] LABS: Alanine Aminotransferase 21 U/L (6-50); Albumin Level 4.7 g/dL (3.5-5.1); Alkaline Phosphatase 83 U/L (38-126); Anion Gap 11 mmol/L (4-12); Aspartate Amino Transferase 32 U/L (17-59); Bilirubin,Total 1.1 mg/dL (0.2-1.3); Blood Urea Nitrogen 15 mg/dL (9-20); Calcium 9.4 mg/dL (8.4-10.2); Carbon Dioxide 25 mmol/L (22-30); Chloride 99 mmol/L (98-107); Estimated CRCL calculation 58 ml/min; Estimated Glomerular Filt Rate > 60; Glucose 211 mg/dL (65-110); Potassium 4.5 mmol/L (3.4-5.0); Sodium 135 mmol/L (137-145); Total Protein 8.6 g/dL (6.3-8.2)
[2025-06-15] MEDS: INSULIN ASPART (*BKC) 100 UNITS/ML SUB-Q (16:40)
[2025-06-15] MEDS: ACETAMINOPHEN 325 MG TABLET 650 MG PO (20:16)
[2025-06-16] VITALS (11 sets, daily range): BP systolic 119–180; BP diastolic 58–108; PULSE 42–117; RESP 14–16; TEMP 36.5–36.8; O2SAT 96–99
--- NOTE | 2025-06-16 01:11 | PC.NURSE ---
This patient, Johnny Thapa, [facility] 06[facility]25 at 2351. Personal belongings sent with patient. Report given to RYNE Hooks. Appropriate documentation sent with patient.
--- NOTE | 2025-06-16 01:12 | PC.NURSE ---
06/15/25 at [id number]-Attempted to call Pt's , Rhoda Thapa to notify her of the patient's room transfer and new room assignment number with no answer. Message left with the new room information.
[2025-06-16 04:57] LABS: Hematocrit 38.4 % (42.0-52.0); Hemoglobin 13.1 g/dL (14.0-18.0); Immature Granulocyte Percent A 0.6 % (0-0.5); Lymphocytes Absolute Auto 1.82 K/mm3 (0.9-3.2); Mean Corpuscular HGB Conc 34.1 g/dl (32-36); Mean Corpuscular Hemoglobin 30.7 pg (26-34); Mean Corpuscular Volume 89.9 fl (80-100); Nucleated Red Blood Cells Absolute Auto 0.000 K/mm3 (0.0-0.012); Nucleated Red Blood Cells Perc 0.0 % (0.0-0.2); Platelet Count Result 279 k/mm3 (150-375); Red Blood Count 4.27 M/mm3 (4.6-6.20); White Blood Count 9.4 K/mm3 (4.5-10.0)
[2025-06-16 05:09] LABS: INR 1.1; Prothrombin Time 14.3 Seconds (11.1-14.7)
[2025-06-16 05:10] LABS: Partial Thromboplastin Time 28.8 Seconds (22.3-36.8)
[2025-06-16 05:20] LABS: Alanine Aminotransferase 21 U/L (6-50); Albumin Level 4.6 g/dL (3.5-5.1); Alkaline Phosphatase 80 U/L (38-126); Anion Gap 11 mmol/L (4-12); Aspartate Amino Transferase 33 U/L (17-59); Bilirubin,Total 1.2 mg/dL (0.2-1.3); Blood Urea Nitrogen 16 mg/dL (9-20); Calcium 9.4 mg/dL (8.4-10.2); Carbon Dioxide 25 mmol/L (22-30); Chloride 93 mmol/L (98-107); Estimated CRCL calculation 53 ml/min; Estimated Glomerular Filt Rate > 60; Glucose 189 mg/dL (65-110); Potassium 4.0 mmol/L (3.4-5.0); Sodium 129 mmol/L (137-145); Total Protein 8.5 g/dL (6.3-8.2)
[2025-06-16] MEDS: METOPROLOL SUCCINATE EXT REL 25 MG TABCR BY MOUTH (08:54)
[2025-06-16] MEDS: TAMSULOSIN HCL 0.4 MG CAPSULE PO (08:55)
[2025-06-16] MEDS: FINASTERIDE 5 MG TABLET BY MOUTH (08:55)
[2025-06-16] MEDS: INSULIN ASPART (*BKC) 100 UNITS/ML SUB-Q (08:58)
--- NOTE | 2025-06-16 14:08 | P.DS_ITS ---
DS: Admitting Diagnosis Discharge Date 06/16/2025 Admitting Diagnosis rib fracture DS: Discharge Diagnosis Discharge Diagnosis (1) Fall: Code(s): W19.XXXA - Unspecified fall, initial encounter Status: Acute Assessment and Plan: * As noted, pt fell while attempting to wipe down shower. * Fall precautions. (2) Closed rib fracture: Code(s): S22.39XA - Fracture of one rib, unspecified side, initial encounter for closed fracture Status: Acute Assessment and Plan: * There is a minimally displaced fracture of the lateral most aspect of the left 6th rib. No pneumothorax but there is a small adjacent pleural effusion that is likely blood. * CT scan shows minimally displaced left 7th anterior lateral rib fracture. No evidence of hemothorax * Pt not requiring any supplemental oxygen. * Incentive spirometer ordered. * Pain control with PRN Morphine 2 mg IVP Q2 hrs prn for severe pain * [place] 5/325 mg PRN Q4 hrs for moderate pain and Tylenol 650 mg Q4 hrs po prn for mild pain. * ICE to ribs * Splint ribs with pillow for sneezing/coughing/changing positions. (3) Traumatic hemothorax, initial encounter: Code(s): S27.1XXA - Traumatic hemothorax, initial encounter Status: Acute Assessment and Plan: * See #2. * Repeat CXR in AM to determine if stable. (4) Atrial fibrillation: Code(s): I48.91 - Unspecified atrial fibrillation Status: Chronic Assessment and Plan: * Rate controlled with metoprolol * Not on AC * PMHx ablation x 2 and watchman device * Telemetry (5) DM w/o complication type II: Code(s): E11.9 - Type 2 diabetes mellitus without complications Status: Chronic Assessment and Plan: * Glucose checks AC and HS * Hypoglycemic protocol * diabetic diet * check A1C * SSI (6) Parkinsons disease: Code(s): G20 - Parkinson's disease Status: Chronic Assessment and Plan: * Fall precautions. * Re-order home meds as appropriate once they are verified and confirmed. DS: Summary Hospital Course Hospital Course: This is a very pleasant 84 year old male pt with PMH of Parkinson's disease, atrial fibrillation status post Watchman procedure and cobalamin deficiency who presented to the emergency room this evening after a fall in the shower. Patient states that he was attempting to Wipe down the shower when he became entangled in the towel and fell outside of the shower landing with his left ribs against the toilet. He denies any head injury or LOC and his only blood thinner is a full aspirin daily. He has no other complaints other than the left rib pain. Workup was performed in ER that shows unremarkable metabolic panel, normal vital signs, specifically oxygen saturations of 98% on room air, hemoglobin and hematocrit of 11.4 and 34.3. Platelets 222 and no leukocytosis. Coags are normal. Chest x-ray shows an acute minimally displaced fracture of the lateral most margin of the left 6th rib. There is a reported adjacent pleural effusion that is likely blood. No pneumothorax. CT head is negative. Patient is being admitted observation to ensure early intervention if there is any sign of decompensation with his respiratory status. He will have serial enzymes and repeat chest x-ray in a.m.. Patient has been treated for the following conditions Closed rib fracture: * As reviewed independently by this provider. There is a minimally displaced fracture of the lateral most aspect of the left 6th rib. No pneumothorax but there is a small adjacent pleural effusion that is likely blood. * CT scan shows minimally displaced left 7th anterior lateral rib fracture. No evidence of * Pt not requiring any supplemental oxygen. * Incentive spirometer ordered. * Pain control with PRN Morphine 2 mg IVP Q2 hrs prn for severe pain * [place] 5/325 mg PRN Q4 hrs for moderate pain and Tylenol 650 mg Q4 hrs po prn for mild pain. * ICE to ribs * Splint ribs with pillow for sneezing/coughing/changing positions.(3) Traumatic hemothorax, initial encounter: Unspecified atrial fibrillation * Rate controlled with metoprolol * Not on AC * PMHx ablation x 2 and watchman device * Telemetry(5) DM w/o complication type II: Type 2 diabetes mellitus without complications * Glucose checks AC and HS * Hypoglycemic protocol * diabetic diet * check A1C * SSI(6) Parkinsons disease: Parkinson's disease * Fall precautions. * Re-order home meds as appropriate once they are verified and confirmed. Patient will be discharged with spirometry. On the day of discharge, the patient was seen and examined. Vital signs were stable. Physical exam were stable and labs were reviewed at length. Discharge instructions, medications, and follow-up appointments were discussed with the patient at length and all day questions were answered. ER warnings were given. Status at Discharge Cognitive/behavioral status at discharge: stable Time Spent with Patient Time attestation: Total time spent providing and/or coordinating discharge services: 45 minutes Exam Const: General: comfortable and no acute distress Other: Pleasant, elderly male patient lying supine at this time in no acute distress. HENMT: Face/Nose/Sinus: Normal nares present Mouth: Yes moist mucous membranes Eyes: General: appearance normal, both eyes and all related structures EOM: EOMs intact bilaterally Neck: Neck: supple and no JVD Thyroid: thyroid normal Carotids: no bruits Lymphatic: lymphadenopathy not noted Chest: Other: Left lateral thorax tender to palpation Resp: Effort & Inspection: abnormal respiratory effort (Diminished due to pain) Auscultation: diminished lung sounds bilateral (Basis) Cardio: Rate: regular rate Rhythm: abnormal rhythm Heart sounds: no gallops, no murmurs and no rubs GI: Inspection: non-distended Auscultation: normal bowel sounds Skin: General skin exam: normal color, no rashes or lesions noted, no erythema, No lesion and No rashes Lesions: no lesions noted Rashes: no rashes noted Wounds: no wounds Neuro: Speech: normal speech Other: Parkinsonian Tremor noted Extrem: General: normal to inspection, no edema and no pedal edema Psych: Mental Status: mental status grossly normal Affect: normal affect DS: Data Data Completed and Pending Labs on day of discharge: Labs from last 24 hours 06/16/25 06/16/25 06/16/25 11:53 07:58 04:18 WBC 9.4 RBC 4.27 L Hgb 13.1 L Hct 38.4 L MCV 89.9 MCH 30.7 MCHC 34.1 RDW 13.4 Plt Count 279 MPV 9.3 Immature Gran % (Auto) 0.6 H Neut % (Auto) 72.1 Lymph % (Auto) 19.4 [place] % (Auto) 7.7 Eos % (Auto) 0.0 Baso % (Auto) 0.2 Lymph # (Auto) 1.82 [place] # (Auto) 0.7 H Eos # (Auto) 0.0 Baso # (Auto) 0.0 Abs Immat Gran (auto) 0.06 H Absolute Neuts (auto) 6.7 Absolute Nucleated RBC 0.000 Nucleated RBC % 0.0 PT 14.3 INR 1.1 APTT 28.8 Sodium 129 L Potassium 4.0 Chloride 93 L Carbon Dioxide 25 Anion Gap 11 BUN 16 Creatinine 0.72 Estim Creat Clear Calc 53 Estimated GFR > 60 Glucose 189 H POC Capillary Glucose 185 H 203 H Calcium 9.4 Total Bilirubin 1.2 AST 33 ALT 21 Alkaline Phosphatase 80 Total Protein 8.5 H Albumin 4.6 06/15/25 06/15/25 20:14 16:31 WBC RBC Hgb Hct MCV MCH MCHC RDW Plt Count MPV Immature Gran % (Auto) Neut % (Auto) Lymph % (Auto) [place] % (Auto) Eos % (Auto) Baso % (Auto) Lymph # (Auto) [place] # (Auto) Eos # (Auto) Baso # (Auto) Abs Immat Gran (auto) Absolute Neuts (auto) Absolute Nucleated RBC Nucleated RBC % PT INR APTT Sodium Potassium Chloride Carbon Dioxide Anion Gap BUN Creatinine Estim Creat Clear Calc Estimated GFR Glucose POC Capillary Glucose 195 H 216 H Calcium Total Bilirubin AST ALT Alkaline Phosphatase Total Protein Albumin Imaging Radiologist's impression: ITS Impressions Chest X-Ray 06/14/25 21:13 IMPRESSION: Acute minimally displaced fracture of the lateralmost margin of the left sixth rib for which dedicated left rib series is suggested. Small left-sided pleural effusion without focal infiltrate. Ribs X-Ray 06/14/25 21:55 IMPRESSION: Redemonstration of an acute minimally displaced lateral left sixth rib fracture with adjacent pleural effusion, likely blood. No discrete pneumothorax identified on plain film evaluation. Head CT 06/14/25 21:58 Impression: No acute intracranial hemorrhage or suspicious mass effect. Chest CT 06/15/25 14:25 IMPRESSION: Minimally displaced left seventh anterolateral rib fracture. Ribs not fully included in the [id number]. Trace left pleural fluid. Multiple sub-6 mm pulmonary nodules which require no additional evaluation, unless the patient is at high risk, in which case consider a low-dose noncontrast CT of the chest in one year. Thoracic aortic ectasia. Chest X-Ray 06/16/25 09:27 Impression: Clear lungs. Stable left seventh rib fracture. Discharge Plan Discharge Attending physician on discharge: Sanchez Manuel Discharging Clinician: Sanchez Manuel Anticipated Discharge Date/Time: 06/16/25 14:22 Patient Disposition: Home Activity: as tolerated Diet: heart healthy Discharge Instructions: Please use incentive spirometry at least 4 times a day. Avoid fall and fall precautions. Please follow-up with the PCP and neurologist. Check blood pressure 1 to 2 times a day. Record and bring into your doctor for review. Call your doctor if your blood pressure is greater than 180/110 or less than 90/45. Walk with cane or other assist device. Take precautions to avoid falls. Rise slowly from a lying or sitting position. Pause before standing or walking. Contact your doctor or call 911 and come to the Emergency Room if you have any type of trauma, lightheadedness with standing or other worrisome symptoms. Avoid NSAIDs (ibuprofen, naproxen, Aleve). Tylenol is safe to take. Follow-up with your primary care provider in 1-2 weeks. Please call for appointment. Follow-up with Cardiology in 2-4 weeks. Please call for an appointment. Thank you for using [facility] for your health care needs. Patient Instructions: Antibiotic Form, Rib Fracture (DC) Patient Language: Emirati Stand Alone Forms: General Discharge Information Follow-up/Referrals: Jamie Yoo MD [Primary Care Provider] - Discharge Medications: New (DME) spirometers and accessories Device See Rx Instructions .Route Qty: 1 0RF Rx Instructions: As directed Continued aspirin [Cristo Chewable Aspirin] 81 mg tablet,chewable 81 mg PO DAILY metformin 500 mg tablet extended release 24 hr 500 mg PO BID (DME) lancets [facility] See Rx Instructions .MEDSUPPLY Qty: 200 5RF Rx Instructions: to check blood sugar qam metoprolol succinate 25 mg tablet extended release 24 hr See Rx Instructions .ROUTE .COMPLEX Qty: 90 2RF Dose Instruction: TAKE 1 TABLET BY MOUTH ONCE DAILY Rx Instructions: TAKE 1 TABLET BY MOUTH ONCE DAILY tamsulosin 0.4 mg capsule 0.4 mg PO DAILY Qty: 90 3RF finasteride 5 mg tablet See Rx Instructions .ROUTE .COMPLEX Qty: 90 2RF Dose Instruction: TAKE 1 TABLET BY MOUTH DAILY Rx Instructions: TAKE 1 TABLET BY MOUTH DAILY (DME) Accu-Chek Guide test strips Strip See Rx Instructions .Route Qty: 100 2RF Rx Instructions: As directed (DME) blood-glucose meter [Accu-Chek Guide Glucose Meter] [facility] See Rx Instructions .Route Qty: 1 0RF Rx Instructions: As directed Date of admission: 06/14/25 23:07 Primary Care Provider: Jamie Yoo Admitting Provider: Jocelyn Castillo Attending physician on admission: Jocelyn Castillo Condition: Stable
== END 2025-06-16 16:45 | disposition home or self-care (01) ==
LOC: ANHED 20:21 → ANHIMU 06-15 00:41 → ANH2MED 06-16 14:26 → ANHIMU 06-18 06:53
PROVIDERS: Nurse Practitioner Adult Health; Admitting Provider Family Medicine; Emergency Provider Student in an Organized Health Care Education/Training Program; PCP Family Medicine; Visit Provider General Practice
DX: S22.32XA Fracture of one rib, left side, initial encounter for closed fracture (principal); W18.2XXA Fall in (into) shower or empty bathtub, initial encounter; S27.1XXA Traumatic hemothorax, initial encounter; I48.91 Unspecified atrial fibrillation; Z79.01 Long term (current) use of anticoagulants; G20.A1 Parkinson's disease without dyskinesia, without mention of fluctuations; E11.9 Type 2 diabetes mellitus without complications
CPT/HCPCS: 36415; 70450; 71046; 71100; 71250; 80048; 80053; 82948; 83036; 85025; 85027; 85610; 85730; 86850; 86900; 86901; 96374; 96375; 96376; 99285; A9270; G0378; J0360; J1815; J2405